=== PATIENT | female | born 1985 ===

== ENCOUNTER 2017-04-23 17:17 | Emergency (ER) | payer OTHER ==
[2017-04-23 18:59] VITALS: BMI 27.6
--- NOTE | 2017-04-23 19:30 | OBHP ---
Datetime: 04/23/2017 18:36 IP Adm Impression: Term, intrauterine ; No Active Labor IP Admit Plan: Observation/Evaluation Admit Comment, IP Provider: 32 y.o. , LMP 07/22/16, revised SERA 05/06/17, EGA 38w 1d by sono at 11w 5d, c/o LAP/LBP for 2 days; improved last night; intesified earlier to day, decided to c ome in. Pain scale 6/10. (+) AFM; denies LOF, VB. - [facility] - UC; noted for abnormal 1hr GCT = 164; normal 3hr GTT 75/152/116/51. First child with multiple congenital (mental and physical - NETWORKING TECHNICIAN , and limb) abnormalities. Pt referred for genetics counseling - declined amniocentesis; new FOB. [facility] appointment 04/22/17. P Ob: 2007, VTOP, medical , no complications. 2008, vaginal delivery at 34 wees, male, 6l b. [place]. P HOG SCALDER: 14 x regular x 5-7. Denies STIs, fibroids PMH: denies PSH: denies NKDA Meds: PNV Soc Hx: denies tobacco, illicit drug or EtOH use. FOB not involved Fam Hx: Mother and father alive - does not know their ages - both, no med issues. P.E.: as above. Small, in NAD. Awake, alert, oriented to time, person and place. Cooperative; acc ompanied by her cousin. Assessment: 32 y.o. P0111, 38w 1d, previous PT del with child with unclear physical and mental abn ormalities. FHRT initially noted for indeterminable baseline. Patient last ate 1200 hours. Intravenou s flids administered - FHR tracing stablized. Now, Category 1 tracing. Plan: 1) Discharge home 2) Reviewed S/S labor 3) Keep scheduled appointment, 04/29/17 Pelvic Type - PN: Adequate Extremities - PN: Normal Abdomen - PN: Normal Back - PN: Normal Breast - PN: Not Done Lungs - PN: Normal Heart - PN: Normal Thyroid - PN: Not Done Neurologic - PN: Normal HEENT - PN: Normal General - PN: Normal Presentation-Admit: Vertex FHR - Baseline A Provider: 135 Membranes, Provider: Intact Contraction Comments Provider: 3-5 Comments, ACOG Physical Exam: Abdomen: Gravid. Soft. Non tender. Fundal height 37cm. All other systems reviewed and are negative Gestation - Est Wks by US: 38w 1d IP Hx Assessment: The History has been Reviewed and is Current EGA AdmitDate IP: 38.1 IP Chief Complaint: Maternal discomfort NICHD Variability Prov Fetus A: Moderate 6-25bpm NICHD Accel Fetus A IP Provider: 15X15 FHR Category Provider Fetus A: Category I NICHD Decel Fetus A IP Provider: None Dilatation, Provider: 1-2 Effacement, Provider: 30 Station, Provider: -3 Genitourinary Exam: Normal DTRs - PN: Not Done
[2017-04-24 00:08] VITALS: BP 136/89; PULSE 69; RESP 18; TEMP 97.9; O2SAT 97
== END 2017-04-23 19:35 | disposition home or self-care (01) ==
LOC: C.EROB 17:17
DX: O26.893 Other specified pregnancy related conditions, third trimester (principal); Z3A.38 38 weeks gestation of pregnancy

== ENCOUNTER 2017-05-10 08:19 | Inpatient (IN) | payer MEDICAID, OTHER ==
[2017-05-10] MEDS ORDERED: Penicillin G 5 Million Unit Vial IVPB ONE (08:21)
[2017-05-10] MEDS ORDERED: Lactated Ringer's 1,000 ML IV SCH (08:30)
[2017-05-10 09:18] LABS: BASO # 0.1 K/uL (0.0-0.2); EOS # 0.1 K/uL (0.0-0.7); EOS % 0.6 % (0.0-4.0); LYMPH # 1.4 K/uL (1.0-4.3); LYMPH % 11.1 % (20.0-40.0); MEAN CELL VOLUME 91.6 fL (81.0-99.0); MEAN CORPUSCULAR HEMOGLOBIN 31.2 pg (27.0-31.0); MEAN PLATELET VOLUME 11.3 fL (7.2-11.7); MONO # 0.8 K/uL (0.0-0.8); MONO % 6.3 % (0.0-10.0); NEUT # 10.1 K/uL (1.8-7.0); RBC 4.5 Mil/uL (3.80-5.20)
[2017-05-10 09:20] LABS: WHITE BLOOD COUNT 12.5 K/uL (4.8-10.8)
[2017-05-10 09:24] LABS: SQUAMOUS EPITHIAL 3 /hpf (0-5); URINE BACTERIA RARE (<OCC); URINE BILIRUBIN NEGATIVE (NEGATIVE); URINE BLOOD 3+ (NEGATIVE); URINE CLARITY Hazy (Clear); URINE COLOR Yellow (YELLOW); URINE GLUCOSE (UA) 1+ mg/dL (Normal); URINE LEUKOCYTE ESTERASE 2+ Leu/uL (Negative); URINE NITRATE NEGATIVE (NEGATIVE); URINE PROTEIN NEGATIVE (NEGATIVE); URINE UROBILINOGEN NORMAL mg/dL (0.2-1.0)
[2017-05-10] MEDS ORDERED: Oxytocin 30 UNIT 30 UNITS/500 ML BAG IV ONE (09:28)
[2017-05-10 09:30] LABS: ALB/GLOB RATIO 1.1 (1.0-2.1); ALBUMIN 3.6 g/dL (3.5-5.0); ALT/SGPT 22 U/L (9-52); AST/SGOT 28 U/L (14-36); BLOOD UREA NITROGEN 13 mg/dL (7-17); CALCIUM 9.2 mg/dl (8.6-10.4); GFR AFRICAN-AMERICAN > 60; GFR NON-AFRICAN AMERICAN > 60; URIC ACID 4.6 mg/dL (2.2-7.5)
[2017-05-10] MEDS ORDERED: Oxytocin 30 UNIT 30 UNITS/500 ML BAG IV SCH (09:30)
[2017-05-10 09:32] LABS: INR 0.9; PROTHROMBIN TIME 9.8 SECONDS (9.7-12.2)
[2017-05-10] MEDS ORDERED: Bupivacaine HCl/FentaNYL Cit 100 ML EPI ONE (11:21)
[2017-05-10] MEDS ORDERED: Oxycodone/Acetaminophen 5/325 mg Tab PO PRN (14:48)
--- NOTE | 2017-05-10 15:19 | OBDS ---
DELIVERY PERSONNEL Delivery Doctor: Brendan Phelps MD Systems Security Consultant: Gisselle Damian RN Anesthesiologist: Feliciano Beckett MD Resident: Dr.Miriam Olvera MATERNAL INFORMATION Delivery Anesthesia: Epidural Medications in Delivery: Pitocin 30 units in 500NS; Estimated Blood Loss (ml): 300 Placenta Cultured: No Maternal Complications: None RN Comments: Liveborn Baby Girl . 9-9 Provider Comments: baby deliverd in [place] end clean cord gas sen no com LABOR SUMMARY EDC: 05/06/2017 00:00 No. Babies in Womb: 1 Attempted: Yes Labor Anesthesia: Epidural LABOR INFORMATION Reason for Induction: Not Applicable Onset of Labor: 05/10/2017 07:00 Complete Dilatation: 05/10/2017 14:03 Oxytocin: Augmentation Group B Beta Strep: Negative (Annotations: 04/08/17) Antibiotics # of Doses: 0 Antibiotics Time of Last Dose: 0 Steroids Given: None Reason Steroids Not Administered: Not Applicable MEMBRANES Membranes Rupture Method: Artificial Rupture of Membranes: 05/10/2017 11:54 Length of Rupture (hrs): 2.83 Amniotic Fluid Color: Clear Amniotic Fluid Amount: Large Amniotic Fluid Odor: Normal STAGES OF LABOR Stage 1 hrs: 7 Stage 1 min: 3 Stage 2 hrs: 0 Stage 2 min: 41 Stage 3 hrs: 0 Stage 3 min: 7 Total Time in Labor hrs: 7 Total Time in Labor min: 51 VAGINAL DELIVERY Episiotomy: None Laceration Extension: Second Degree Laceration Type: Perineal Laceration Repair: Yes Laceration Repair Note: repaired Initial Vag Sponge Count: 10 Initial Vag Sharps Count: 1 Sponge Count Correct: Yes Sharps Count Correct: Yes BABY A INFORMATION Delivery Date/Time: 05/10/2017 14:44 Method of Delivery: Vaginal Born in Route : No : N/A Forceps: N/A Vacuum Extraction: N/A Shoulder Dystocia : No SHOULDER DYSTOCIA BABY A Delivery Date/Time: 05/10/2017 14:44 PRESENTATION/POSITION BABY A Presentation: Cephalic Cephalic Presentation: Vertex Vertex Position: Left Occipital Anterior Breech Presentation: N/A PLACENTA INFORMATION BABY A Placenta Delivery Time : 05/10/2017 14:51 Placenta Method of Delivery: Spontaneous Placenta Status: Delivered SCORES BABY A Heart Rate 1 min: >100 bpm Resp Effort 1 min: Good Cry Reflex Irritability 1 min: Cough or Sneeze or Pulls Away Muscle Tone 1 min: Active Motion Color 1 min: Body [place], Extremities Blue SCORE 1 MIN: 9 Heart Rate 5 min: >100 bpm Resp Effort 5 min: Good Cry Reflex Irritability 5 min: Cough or Sneeze or Pulls Away Muscle Tone 5 min: Active Motion Color 5 min: Body [place], Extremities Blue SCORE 5 MIN: 9 INFANT INFORMATION BABY A Gestational Age at Delivery: 40.4 Gestational Status: Term Infant Outcome : Liveborn Infant Condition : Stable Infant Sex: Female IDENTIFICATION/MEDS BABY A ID Band Number: [id number] ID Band Location: Left Leg; Left Arm Sensor Applied: Yes Sensor Number: [id number] Sensor Location : Cord Clamp Vitamin K Given : Not Given Erythromycin Given: Not Given WEIGHT/LENGTH BABY A Birthweight (gms): 3535 Weight (lb): 7 Weight (oz): 13 Length Inches: 19.75 Length cms: 50.2 CORD INFORMATION BABY A No. Cord Vessels: 3 Nuchal Cord : Around Neck x1, Loose Cord Blood Taken: Yes Infant Suction: Mouth; Nose ASSESSMENT BABY A Infant Complications: None Physical Findings at Delivery: Within Normal Limits Respirations: Appears Normal Crop Pest Control Specialist/ALS Called : No Infant Care By: dr yeh Transferred To: Remains with Mother
[2017-05-10] MEDS ORDERED: Phytonadione 1 mg/0.5 ml Inj (Neonatal) ONE (15:29)
[2017-05-10] MEDS ORDERED: Erythromycin 0.5% Ophth Oint 1 APPLIC/3.5 G ONE (15:29)
[2017-05-10 15:36] LABS: BASO % 0.3 % (0.0-2.0); EOS % 0.1 % (0.0-4.0); HEMOGLOBIN 14.2 g/dL (11.0-16.0); LYMPH % 7.1 % (20.0-40.0); MEAN CELL VOLUME 91.6 fL (81.0-99.0); MEAN CORPUSCULAR HEMOGLOBIN 31.2 pg (27.0-31.0); MEAN CORPUSCULAR HGB CONC 34.1 g/dL (33.0-37.0); MEAN PLATELET VOLUME 10.4 fL (7.2-11.7); MONO # 0.6 K/uL (0.0-0.8); MONO % 4.8 % (0.0-10.0); NEUT # 11.9 K/uL (1.8-7.0); NEUT % 87.7 % (50.0-75.0); PLATELET COUNT 153 K/uL (130-400); RBC 4.55 Mil/uL (3.80-5.20); RED CELL DISTRIBUTION WIDTH 14.3 % (11.5-14.5); WHITE BLOOD COUNT 13.5 K/uL (4.8-10.8)
[2017-05-10 15:52] LABS: BANDS 1 % (0-2); LYMPHOCYTE 8 % (20-40); MONOCYTE 8 % (0-10); NEUTROPHIL 83 % (50-75); PLATELET ESTIMATE NORMAL (NORMAL); TOTAL CELLS COUNTED 100
[2017-05-10 15:53] LABS: LARGE PLATELETS PRESENT
[2017-05-10] MEDS: Oxycodone/Acetaminophen 5/325 mg Tab PO PRN (16:03)
[2017-05-10] MEDS ORDERED: Oxycodone/Acetaminophen 5/325 mg Tab ONE (16:04)
[2017-05-11 07:48] LABS: MEAN CELL VOLUME 91.2 fL (81.0-99.0); MEAN CORPUSCULAR HEMOGLOBIN 31.9 pg (27.0-31.0); MEAN PLATELET VOLUME 10.7 fL (7.2-11.7); RBC 3.74 Mil/uL (3.80-5.20); RED CELL DISTRIBUTION WIDTH 14.1 % (11.5-14.5); WHITE BLOOD COUNT 13.1 K/uL (4.8-10.8)
[2017-05-11 07:57] LABS: HEMOGLOBIN 11.9 g/dL (11.0-16.0)
[2017-05-11 09:34] VITALS: RESP 18; O2SAT 97
[2017-05-11] MEDS: Oxycodone/Acetaminophen 5/325 mg Tab PO PRN (17:48)
--- NOTE | 2017-05-12 06:52 | OBPPN ---
Datetime: 05/11/2017 07:46 PP Pain Prov: Within normal limits PP Nausea Prov: Denies PP Flatus Prov: Yes PP BM Prov: Yes PP Heart Prov: Normal PP Lungs Prov: Normal PP Abdomen/Uterus Prov: Normal PP Lochia Prov: Normal PP Vulva/Perineum Prov: Normal PP Extremities Prov: Normal PP Progress Prov: Normal PP Impression Prov: Normal progression PP Plan Prov: Continue present management PP Progress Note Prov: Patient seen and examined at bedside. Per nursing no acute events overnight. Patient is doing well, having some abdominal cramping. Lochia is moderate. Ambulating and tolerating diet. Urinating without difficulty. Passing flatus, and BM. Breast and bottle feeding. Denies headach es, dizziness, cp, palpitations, sob, urinary symptoms. VS: BP-142/81 HR-79 Temp-100.0 Gen: AAOx3 Abd: Soft, fundus firm at umbilicus Ext: No clubbing, cyanosis, edema; no calf tenderness Labs: 12.5>14.0/41.2<167 12.5>14.2/41.6<153 F/U am CBC O positive Rubella immune A/P: 32 year old at 40w4d s/p with second degree perineal laceration PPD#1 -Stable, afebrile -Pain control: Motrin prn -F/U am CBC -Encourage ambulation and hydration -Encourage -Continue routine care -Anticipate D/C home tomorrow Leticia Rodriguez DO PGY-1 agree with above
[2017-05-13 04:36] VITALS: BP 140/74; PULSE 70; TEMP 97.7
== END 2017-05-12 16:00 | disposition home or self-care (01) | DRG 373 ==
LOC: C.EROB 08:19 → C.4D 08:21 → C.4M 16:35
PROVIDERS: ADMIT Obstetrics & Gynecology; ATTEND Obstetrics & Gynecology
PROC: 10E0XZZ Delivery of Products of Conception, External Approach (ICD-10-PCS; principal; 2017-05-10)
PROC: 0KQM0ZZ Repair Perineum Muscle, Open Approach (ICD-10-PCS; 2017-05-10)
DX: O48.0 Post-term pregnancy (principal); O69.81X0 Labor and delivery complicated by cord around neck, without compression, not applicable or unspecified; O70.1 Second degree perineal laceration during delivery; Z3A.40 40 weeks gestation of pregnancy; Z37.0 Single live birth

== ENCOUNTER 2018-04-06 09:31 | Outpatient (CLI) | payer SELFPAY | END 2018-04-06 09:32 | disposition home or self-care (01) | LOC: C.LAB 09:31 | DX: R74.8 Abnormal levels of other serum enzymes (principal); R73.01 Impaired fasting glucose; E78.1 Pure hyperglyceridemia; R10.13 Epigastric pain ==

== ENCOUNTER 2018-07-27 09:41 | Outpatient (CLI) | payer SELFPAY | END 2018-07-27 09:42 | disposition home or self-care (01) | LOC: C.USIC 09:41 ==